=== PATIENT | female | born 1970 | race Caucasian/White ===

== ENCOUNTER 2021-07-26 07:08 | Day surgery (SDC) | payer MEDICAID ==
[~2021-07-26] VITALS: Ht 160 cm; Wt 89.4 kg
[2021-07-26] MEDS ORDERED: fentaNYL CITRATE/PF 100 MCG/2 ML AMP ONE (08:11)
[2021-07-26] MEDS ORDERED: MIDAZOLAM HCL 5 MG/5 ML VIAL ONE (08:11)
[2021-07-26 08:43] LABS: HCG,QUAL RESULT NEGATIVE (NEGATIVE)
[2021-07-26] MEDS ORDERED: MEPERIDINE 100 MG INJ. 100 MG/ML VIAL ONE (08:53)
[2021-07-26] MEDS ORDERED: DIPHENHYDRAMINE INJ 50 MG/ML VIAL ONE (09:38)
[2021-07-26 14:16] VITALS: BP_SYST 158
== END 2021-07-26 10:20 | disposition home or self-care (01) ==
LOC: EDSEX 07:08 → SDS 07:08 → SMU 07:23 → SDS 10:20
PROVIDERS: ATTEND Internal Medicine
DX: R10.13 Epigastric pain (principal); I10 Essential (primary) hypertension; Z98.84 Bariatric surgery status; Z79.899 Other long term (current) drug therapy; Z20.822 Contact with and (suspected) exposure to COVID-19
CPT/HCPCS: 36415; 43239; 84703; 87081; 87426; 88305; 88312; 88313; G0378; J1200; J2175; J2250; J3010

== ENCOUNTER 2022-02-23 06:48 | Day surgery (SDC) | payer MEDICAID ==
[~2022-02-23] VITALS: Ht 160 cm; Wt 96.2 kg
[2022-02-23] MEDS ORDERED: MIDAZOLAM HCL 5 MG/5 ML VIAL ONE (06:53)
[2022-02-23] MEDS ORDERED: fentaNYL CITRATE/PF 100 MCG/2 ML AMP ONE (06:53)
[2022-02-23 07:03] LABS: HCG,QUAL RESULT NEGATIVE (NEGATIVE)
[2022-02-23 14:23] VITALS: BP_SYST 154
== END 2022-02-23 10:10 | disposition home or self-care (01) ==
LOC: SDS 06:48 → SMU 06:53 → SDS 10:10
PROVIDERS: ATTEND Internal Medicine
DX: Z12.11 Encounter for screening for malignant neoplasm of colon (principal); D12.2 Benign neoplasm of ascending colon; D12.5 Benign neoplasm of sigmoid colon; K64.8 Other hemorrhoids; Z98.84 Bariatric surgery status; I10 Essential (primary) hypertension; Z20.822 Contact with and (suspected) exposure to COVID-19; Z79.899 Other long term (current) drug therapy
CPT/HCPCS: 45380; 45385; 87426; 84703; 36415; 88305; 99152; G0378; J2250; J3010